=== PATIENT | female | born 1990 | race Caucasian/White ===

== ENCOUNTER 2020-01-22 18:19 | Emergency (ER) | payer BC, OTHER ==
[2020-01-22] MEDS ORDERED: Ondansetron 4 MG Tab.DIS PO ONE (19:19)
--- NOTE | 2020-01-22 19:26 | EDM.PDOC ---
ED HPI GENERAL MEDICAL PROBLEM - General Chief Complaint: Gastrointestinal Problem Stated Complaint: VOMITING Time Seen by Provider: 01/22/20 19:06 Source of Information: Reports: Patient, Family () History Limitations: Reports: No Limitations - History of Present Illness INITIAL COMMENTS - FREE TEXT/NARRATIVE: Mrs. Aranda is a very pleasant 29-year-old woman with no chronic medical issues, who states that she suffered a miscarriage on 01/12/2020. She underwent an upper sound this past 01/19/2020, which was, according to the patient, unremarkable, and did not identify an ectopic . Her OB /PLANT CLERK, however, has been following her quantitative hCGs, with the most recent quantitative hCG in the 800s last week (according to the patient - we have no record of it). The patient no longer has any vaginal bleeding. She has had low back pain since last week, nausea without emesis since yesterday, and she reports developing watery diarrhea 2 hours prior to coming to the ED. No recent fever. No urinary symptoms. No recent chills, cough, dyspnea, chest pain, palpitations, constipation, abdominal pain, recent weight gain or weight loss, recent bloody bowel movements or black bowel movements, recent joint aches , headaches, or rashes. Here in the ED, the patient is found to be hemodynamically stable, afebrile, saturating 98% on room air. The patient does not have a PCP. Her Noodle Maker is Dr. Anisha Velázquez. She received an influenza vaccine this season. Lower Back Pain Score (Numeric/FACES): 5 - Related Data Allergies Allergy/AdvReac Type Severity Reaction Status Date / Time latex Allergy Itching Verified 01/22/20 18:28 Home Meds: Home Meds . 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 (x 2) : 3 Para: 1 - Past Surgical History HEENT Surgical History: Reports: Myringotomy w Tube(s) (bilateral), Tonsillectomy GI Surgical History: Reports: Hernia, Inguinal (bilateral, as an infant) Female Surgical History: Reports: Other (See Below) (Exploratory laparoscopy -> negative for endometriosis) Musculoskeletal Surgical History: Reports: Other (See Below) (Left Lisfranc fracture repair) Social & Family History - Tobacco Use Smoking Status *Q: Never Smoker - Alcohol Use Alcohol Use History: Yes Alcohol Use Frequency: Socially - Recreational Drug Use Recreational Drug Use: No - Living Situation & Occupation Living situation: Reports: , with Spouse, with Family (1 child) Occupation: Employed ([employer]) ED ROS GENERAL - Review of Systems Review Of Systems: Comprehensive ROS is negative, except as noted in HPI. ED EXAM, GENERAL - Physical Exam Exam: See Below Exam Limited By: No Limitations General Appearance: Alert, WD/WN, No Apparent Distress Eye Exam: Bilateral Eye: EOMI, Normal Inspection Ears: Normal External Exam, Hearing Grossly Normal Nose: Normal Inspection Throat/Mouth: Normal Inspection, Normal Lips, Normal Voice, No Airway Compromise Head: Atraumatic, Normocephalic Neck: Normal Inspection, Full Range of Motion Respiratory/Chest: No Respiratory Distress, Lungs Clear, Normal Breath Sounds, No Accessory Muscle Use Cardiovascular: Normal Peripheral Pulses, Regular Rate, Rhythm, No Edema, No Gallop, No JVD, No Murmur, No Rub GI/Abdominal: Normal Bowel Sounds, Soft, No Organomegaly, No Distention, No Abnormal Bruit, No Mass, Tender (Mild, generalized, non-focal) (Female) Exam: Deferred Rectal (Female) Exam: Deferred Back Exam: Normal Inspection, Full Range of Motion. No: CVA Tenderness (L), CVA Tenderness (R) Extremities: Normal Inspection, Normal Range of Motion, No Pedal Edema, Normal Capillary Refill Neurological: Alert, Oriented, Normal Cognition, No Motor/Sensory Deficits Psychiatric: Normal Affect Skin Exam: Warm, Dry, Intact, Normal Color, No Rash Course - Vital Signs Last Recorded V/S: Last Vital Signs Temp 37.2 C 01/22/20 18: Pulse 78 01/22/20 18:26 Resp 16 01/22/20 18: BP 147/90 H 01/22/20 18:26 Pulse Ox 98 01/22/20 18:26 - Orders/Labs/Meds Labs: Laboratory Tests 01/22/20 01/22/20 Range/Units 19:35 20:15 HCG, Quant 469.0 mIU/mL Urine Color Light yellow (Yellow) Urine Appearance Clear (Clear) Urine pH 7.0 (5.0-8.0) Ur Specific Wilson 1.015 (1.005-1.030) Urine Protein Negative (Negative) Urine Glucose (UA) Negative (Negative) Urine Ketones Negative (Negative) Urine Occult Blood Trace-intact H (Negative) Urine Nitrite Negative (Negative) Urine Bilirubin Negative (Negative) Urine Urobilinogen 0.2 (0.2-1.0) Ur Leukocyte Esterase Trace H (Negative) Urine RBC Not seen (0-5) /hpf Urine WBC 0-5 (0-5) /hpf Ur Squamous Epith Cells 10-20 H (0-5) /hpf Urine Bacteria Rare (FEW) /hpf Urine Mucus Moderate H (FEW) /hpf Meds: Medications Discontinued Medications Generic Name Dose Route Start Last Admin Trade Name Freq PRN Reason Stop Dose Admin Loperamide HCl 4 mg 01/22/20 19:36 01/22/20 19:42 Imodium PO 01/22/20 19:37 4 mg ONETIME STA Administration Ondansetron HCl 4 mg 01/22/20 19:19 01/22/20 19:26 Zofran Odt PO 01/22/20 19:20 4 mg ONETIME ONE Administration - Re-Assessments/Exams Free Text/Narrative Re-Assessment/Exam: 01/22/20 19:19 As above, while the patient been experiencing some nausea and lower back pain since yesterday, and watery diarrhea for the past 2 hours, she is essentially here to have her hCG checked. Neither she nor her understand, however, why Dr. Velázquez is following her hCG. We will endeavor to reach Dr. Velázquez. Because of the patient's lower back pain, the triage nurse ordered a urinalysis. In the meantime, the patient will be given oral Zofran and loperamide. 01/22/20 19:[address] Way at 19:22. He suspects that Dr. Velázquez wants to make sure that there is no molar . I will order a quantitative hCG. 01/22/20 21:07 The patient's urinalysis indicates contamination, but is not consistent with a UTI. Her quantitative hCG is 469. 01/22/20 21:11 Test results discussed with the patient and her . I will discharge the patient home with an [facility] prescription for Zofran ODT 4 mg #10. She may take [id number] loperamide as needed. I will recommend an appropriate diet. Departure - Departure Time of Disposition: 21:17 Disposition: Home, Self-Care 01 Condition: Good Clinical Impression: Gastroenteritis - Discharge Information *PRESCRIPTION DRUG MONITORING PROGRAM REVIEWED*: Not Applicable *COPY OF PRESCRIPTION DRUG MONITORING REPORT IN PATIENT VANNA: Not Applicable Referrals: Anisha Velázquez MD [Primary Care Provider] - Forms: ED Department Discharge Additional Instructions: You were seen in the emergency room for low back pain, nausea, and watery diarrhea. Work-up in the ER included a urinalysis and a quantitative hCG. Your work-up was unremarkable. You do not have a UTI. Your quantitative hCG was 469. You have been started on the anti-nausea medicine Zofran, and a prescription for Zofran has been provided to you. Dissolve 1 tablet of Zofran on your tongue up to every 8 hours, as needed for nausea/vomiting. You have also been started on the anti-diarrhea medicine loperamide (Imodium AD) . Loperamide is available [id number], and the generic is just as good as the brand name. Take 1 tablet (2 mg) of loperamide after each loose bowel movement, to a maximum of 8 tablets (16 mg) within a 24-hour period. Bear in mind that you have already taken 2 tablets (4 mg). We recommend that you eat a bland diet, such as rice, oatmeal, or toast, until you are feeling better. Chicken noodle soup with saltine crackers is an excellent choice. Stay adequately hydrated. Gatorade or Powerade are best. We recommend that you avoid juice and milk, as they may make your diarrhea worse. Follow-up with your Noodle Maker, Dr. Anisha Velázquez, on Friday morning, 2019. If any other problems, please do not hesitate to return to the ER. Sepsis Event Note - Evaluation Sepsis Screening Result: No Definite Risk - Focused Exam Vital Signs: Vital Signs Temp Pulse Resp BP Pulse Ox 01/22/20 18:26 37.2 C 78 16 147/90 H 98 Date Exam was Performed: 01/22/20 Time Exam was Performed: 21:07
[2020-01-22] MEDS ORDERED: Loperamide 2 MG Cap PO STA (19:36)
== END 2020-01-22 21:25 | disposition home or self-care (01) ==
LOC: JD.ED 18:19
DX: K52.9 Noninfective gastroenteritis and colitis, unspecified (principal); Z91.040 Latex allergy status
CPT/HCPCS: 36415; 81001; 84702; 99284; A9270

== ENCOUNTER 2021-01-20 10:44 | Inpatient (IN) | payer BC ==
[2021-01-20] MEDS ORDERED: Magnesium Sulfate/Water 2 GM in Premix Bag 1 BAG IV ONE (11:31)
[2021-01-20] MEDS ORDERED: Sodium Chloride 0.9% 10 ML Syringe FLUSH PRN (11:31)
[2021-01-20] MEDS ORDERED: Nalbuphine 10 MG/1 ML Vial IVPUSH PRN (11:31)
[2021-01-20] MEDS ORDERED: Magnesium Sulfate/Water 4 GM in Premix Bag 1 BAG IV ONE (11:31)
[2021-01-20] MEDS ORDERED: Calcium Gluconate 10% 1 GM/10 ML SDV IV PRN (11:31)
[2021-01-20] MEDS ORDERED: Acetaminophen 325 MG Tab PO PRN (11:31)
[2021-01-20] MEDS ORDERED: Ondansetron 4 MG/2 ML SDV IVPUSH PRN ×2 (11:31→13:12)
[2021-01-20] MEDS ORDERED: Betamethasone Acetate/Betamethasone Sod Phosphate 30 MG/5 ML MDV IM ONE (11:37)
[2021-01-20] MEDS ORDERED: Oxytocin/Lactated Ringers 10 UNIT/1,000 ML BAG IV SCH ×2 (11:45)
--- NOTE | 2021-01-20 11:52 | PCM.LDHP ---
L&D History of Present Illness - General Date of Service: 01/20/21 Admit Problem/Dx: Patient Status Order with Admit Dx/Problem 01/20/21 11:03 Patient Status [ADT] Routine 01/20/21 11:31 Patient Status [ADT] Routine Admission Diagnosis/Problem Admission Diagnosis/Problem High risk Source of Information: Patient History Limitations: Reports: No Limitations - History of Present Illness Introduction:: Patient is a 30 y/o at 36 2/7 wks who presents for planned assessment. Has known gestational HTN, but on last clinic assessment had some upper limit of normal BP's. Today states she has been having more of a constant headache. Has tried Tylenol a few times, but no relief. Good FM. No other issues - Related Data Allergies/Adverse Reactions: Allergies Allergy/AdvReac Type Severity Reaction Status Date / Time latex Allergy Itching Verified 01/13/21 19:25 melon Allergy Anaphylactic Verified 01/13/21 19:25 Shock Home Medications: Home Meds Aspirin 81 mg PO DAILY 01/13/21 [History] L.acidoph,Paracasei, B.lactis [Probiotic] 1 each PO DAILY 01/13/21 [History] Vits #93/Iron Fum/FA [ Formula Tablet] 1 tab PO DAILY 01/13/21 [History] Sertraline [Zoloft] 50 mg PO DAILY 01/13/21 [History] Past Medical History Cardiovascular History: Reports: Other (See Below) (Gestational HTN in 2018) Respiratory History: Reports: Asthma (Exercise induced) 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 (x 2) : 4 Para: 1 LMP (Approximate): Psychiatric History: Reports: Anxiety - Past Surgical History HEENT Surgical History: Reports: Myringotomy w Tube(s) (bilateral), Tonsillectomy GI Surgical History: Reports: Hernia, Inguinal (bilateral, as an ) Female Surgical History: Reports: Other (See Below) (Diagnostic laparoscopy - > negative for endometriosis) Musculoskeletal Surgical History: Reports: Other (See Below) (Left Lisfranc fracture repair) Social & Family History - Tobacco Use Tobacco Use Status *Q: Never Tobacco User - Alcohol Use Alcohol Use History: No - Recreational Drug Use Recreational Drug Use: No - Living Situation & Occupation Living situation: Reports: , with Spouse, with Family (1 child) Occupation: Employed ([employer]) H&P Review of Systems - Review of Systems: Review Of Systems: See Below General: Reports: Malaise Pulmonary: Reports: No Symptoms Cardiovascular: Reports: No Symptoms Gastrointestinal: Reports: No Symptoms Genitourinary: Reports: No Symptoms Musculoskeletal: Reports: No Symptoms Psychiatric: Reports: No Symptoms Neurological: Reports: Headache L&D Exam - Exam Exam: See Below - Vital Signs Vital Signs: Last Vital Signs Temp Pulse 90 01/20/21 11:00 Resp BP 141/95 H 01/20/21 11:00 Pulse Ox Weight: 92.986 kg - OB Specific Contraction Intensity: Irritability Movement: Active Heart Tones: Present Heart Tones per Min: 135 Heart Rate (FHR) Variability: Moderate (6-25 bmp) Presentation: Vertex - Morris Score Morris Score Cervix Position: Midposition Morris Score Consistency: Soft Morris Score Effacement: 51-70% Morris Score Dilation: 1-2 cm Morris Score 's Station: -3 Morris Score Total: 6 - Exam General: Alert, Oriented, Cooperative Lungs: Clear to Auscultation, Normal Respiratory Effort Cardiovascular: Regular Rate, Regular Rhythm GI/Abdominal Exam: Soft, Non-Tender Genitourinary: Normal external exam Extremities: Normal Inspection Skin: Warm, Dry, Intact Neurological: Hyperreflexia. No: Clonus DTR: 2+: Patella (R), 3+: Bicep (L), Bicep (R), Patella (L) - Problem List (1) 36 weeks gestation of SNOMED Code(s): 57579512 ICD Code: Z3A.36 - 36 WEEKS GESTATION OF Status: Acute Current Visit: Yes (2) Severe preeclampsia SNOMED Code(s): 68160896 ICD Code: O14.10 - SEVERE PRE-ECLAMPSIA, UNSPECIFIED TRIMESTER Status: Acute Current Visit: Yes Qualifiers: Trimester: third trimester Qualified Code(s): O14.13 - Severe pre- eclampsia, third trimester Problem List Initiated/Reviewed/Updated: Yes Orders Last 24hrs: Active Orders 24 hr Category Date Time Status Patient Status [ADT] Routine ADT 01/20/21 11:03 Active Patient Status [ADT] Routine ADT 01/20/21 11:31 Ordered Bedrest [RC] ASDIRECTED Care 01/20/21 11:31 Ordered Communication Order [RC] ASDIRECTED Care 01/20/21 11:31 Ordered Communication Order [RC] ASDIRECTED Care 01/20/21 11:31 Ordered Communication Order [RC] ASDIRECTED Care 01/20/21 11:31 Ordered Communication Order [RC] ASDIRECTED Care 01/20/21 11:31 Ordered Equipment to Bedside [RC] PRN Care 01/20/21 11:31 Ordered Monitoring [RC] CONTINUOUS Care 01/20/21 11:31 Ordered Non Stress Test [RC] PER UNIT ROUTINE Care 01/20/21 11:03 Active Intake and Output [RC] Q4H Care 01/20/21 11:32 Ordered Notify Provider Status Change [RC] ASDIRECTED Care 01/20/21 11:31 Ordered Notify Provider Vital Signs [RC] ASDIRECTED Care 01/20/21 11:31 Ordered Notify Provider [RC] ASDIRECTED Care 01/20/21 11:31 Ordered Notify Provider [RC] ASDIRECTED Care 01/20/21 11:31 Ordered Notify Provider [RC] PRN Care 01/20/21 11:31 Ordered Oxygen Therapy [RC] PRN Care 01/20/21 11:31 Ordered Peripheral IV Care [RC] . DIRECTED Care 01/20/21 11:36 Ordered Vital Signs [RC] ASDIRECTED Care 01/20/21 11:31 Ordered Vital Signs [RC] PER UNIT ROUTINE Care 01/20/21 11:03 Active Clear Liquid Diet [DIET] Diet 01/20/21 Lunch Ordered ALANINE AMINOTRANSFERASE,ALT [CHEM] Routine Lab 01/20/21 11:19 Ordered ASPARTATE AMNIOTRANSFERASE,AST [CHEM] Routine Lab 01/20/21 11:19 Ordered CBC W/O DIFF,HEMOGRAM [HEME] Routine Lab 01/20/21 11:20 Ordered CORONAVIRUS COVID-19 STEPHANIE [MOLEC] Stat Lab 01/20/21 11:36 Ordered CREATININE W/GFR [CHEM] Routine Lab 01/20/21 11:19 Ordered PROTEIN/CREATININE RATIO,URINE [URCHEM] Routine Lab 01/20/21 11:19 Ordered RPR (SYPHILIS SERO) W/ RFLX [REF] Routine Lab 01/20/21 11:20 Ordered TYPE AND SCREEN [BBK] Routine Lab 01/20/21 11:20 Ordered Acetaminophen [TylenoL] Med 01/20/21 11:31 Ordered 650 mg PO Q4H PRN Calcium Gluconate Med 01/20/21 11:31 Ordered 1 gm IV ASDIRECTED PRN Lactated Ringers [Ringers, Lactated] 1,000 ml Med 01/20/21 11:45 Ordered IV ASDIRECTED Nalbuphine [Nubain] Med 01/20/21 11:31 Ordered 10 mg IVPUSH Q2H PRN Ondansetron [Zofran] Med 01/20/21 11:31 Ordered 4 mg IVPUSH Q4H PRN Oxytocin/Lactated Ringers [Pitocin in LR 10 Units/1,000 Med 01/20/21 11:45 Ordered ML] 10 unit in 1,000 ml IV .CONTINUOUS Oxytocin/Lactated Ringers [Pitocin in LR 10 Units/1,000 Med 01/20/21 11:45 Ordered ML] 10 unit in 1,000 ml IV TITRATE Sodium Chloride 0.9% [Saline Flush] Med 01/20/21 11:31 Ordered 10 ml FLUSH ASDIRECTED PRN Blood Pressure [OM.PC] ASDIRECTED Ot 01/20/21 11:45 Ordered Deep Tendon Reflexes [WOMSER] ASDIRECTED [facility] 01/20/21 11:45 Ordered Electronic Heart Tones Internal [WOMSER] Per Unit [facility] 01/20/21 11:31 Ordered Routine Medication Administration Instruction [OM.PC] Per Unit [facility] 01/20/21 11:33 Ordered Routine Peripheral IV Insertion Adult [OM.PC] Urgent Ot 01/20/21 11:31 Ordered Resuscitation Status Routine Resus Stat 01/20/21 11:03 Ordered Medication Orders Acetaminophen (Acetaminophen 325 Mg Tab) 650 mg PO Q4H PRN PRN Reason: Pain (Mild 1-3) and fever Calcium Gluconate (Calcium Gluconate 10% 1 Gm/10 Ml Sdv) 1 gm IV ASDIRECTED PRN PRN Reason: respiratory distress Lactated Ringer's (Ringers, Lactated) 1,000 mls @ 75 mls/hr IV ASDIRECTED DAE Oxytocin/Lactated Ringer's (Pitocin In Lr 10 Units/1,000 Ml) 10 unit in 1,000 mls @ 12 mls/hr IV TITRATE DAE; Protocol Oxytocin/Lactated Ringer's (Pitocin In Lr 10 Units/1,000 Ml) 10 unit in 1,000 mls @ 500 mls/hr IV .CONTINUOUS DAE Nalbuphine HCl (Nalbuphine 10 Mg/1 Ml Vial) 10 mg IVPUSH Q2H PRN PRN Reason: Pain Ondansetron HCl (Ondansetron 4 Mg/2 Ml Sdv) 4 mg IVPUSH Q4H PRN PRN Reason: Nausea/Vomiting Sodium Chloride (Sodium Chloride 0.9% 10 Ml Syringe) 10 ml FLUSH ASDIRECTED PRN PRN Reason: Keep Vein Open Assessment/Plan Comment:: Initial BP 155/110. Remainder so far upper limit of mild range. With patient complaints of headache that has not been able to be treated with several doses of Tylenol would classify here as severe preeclampsia. Plan for IOL. She expressed understanding * Labs to be done * Betamethasone to be administered * Magnesium, 6 gram bolus then 2 grams/hr * Monitor BP's closely. Does not yet need antihypertensive treatment * Close I&O's * GBS negative, no need for antibiotics * Pitocin for IOL, AROM when able * Pain management options reviewed * Anticipate
[2021-01-20] MEDS ORDERED: Magnesium Sulfate/Water 40 GM/1,000 ML BAG ONE (11:58)
[2021-01-20] MEDS: Lactated Ringers 1,000 ML IV SCH ×3 (12:08→19:30)
[2021-01-20] MEDS: Magnesium Sulfate/Water 40 GM/1,000 ML BAG IV SCH (12:41)
[2021-01-20] MEDS ORDERED: fentaNYL 100 MCG/2 ML SDV EPIDUR PRN (13:12)
--- NOTE | 2021-01-20 13:15 | PCM.PREANE ---
Preanesthetic Assessment - Procedure Proposed Procedure: Epidural - Anesthesia/Transfusion/Family Hx Anesthesia History: Prior Anesthesia Without Reaction Family History of Anesthesia Reaction: No Transfusion History: No Prior Transfusion(s) Intubation History: Unknown - Review of Systems General: No Symptoms Pulmonary: No Symptoms Cardiovascular: No Symptoms (Preeclampsia/Gestational HTN), Chest Pain Gastrointestinal: No Symptoms (GERD) Neurological: Numbness (CTS with bilaterally) Other: Reports: Anxiety - Physical Assessment NPO Status Date: 01/20/21 NPO Status Time: 13:50 Vital Signs: Last Vital Signs Temp 36.8 C 01/20/21 12:00 Pulse 97 01/20/21 12:00 Resp 20 01/20/21 12:00 BP 151/95 H 01/20/21 12:00 Pulse Ox 97 01/20/21 12:00 Height: 1.68 m Weight: 92.986 kg ASA Class: 3 Mental Status: Alert & Oriented x3 Airway Class: Mallampati = 2 Dentition: Reports: Normal Dentition, Caries Thyro-Mental Finger Breadths: 3 Mouth Opening Finger Breadths: 3 ROM/Head Extension: Full Lungs: Clear to Auscultation, Normal Respiratory Effort Cardiovascular: Regular Rate, Regular Rhythm, No Murmurs - Lab Values: Laboratory Last Values WBC 11.71 K/mm3 (3.98-10.04) H 01/20/21 11:38 RBC 4.41 M/mm3 (3.98-5.22) 01/20/21 11:38 Hgb 12.9 gm/dl (11.2-15.7) D 01/20/21 11:38 Hct 38.7 % (34.1-44.9) 01/20/21 11:38 MCV 87.8 fl (79.4-94.8) 01/20/21 11:38 MCH 29.3 pg (25.6-32.2) 01/20/21 11:38 MCHC 33.3 g/dl (32.2-35.5) 01/20/21 11:38 RDW Std Deviation 39.3 fL (36.4-46.3) 01/20/21 11:38 Plt Count 222 K/mm3 (182-369) 01/20/21 11:38 MPV 11.5 fl (9.4-12.3) 01/20/21 11:38 Creatinine 0.7 mg/dL (0.55-1.02) 01/20/21 11:38 Est Cr Clr Drug Dosing 108.01 mL/min 01/20/21 11:38 Estimated GFR (MDRD) > 60 mL/min (>60) 01/20/21 11:38 AST 15 U/L (15-37) 01/20/21 11:38 ALT 21 U/L (14-59) 01/20/21 11:38 Ur Random Creatinine 21.1 mg/dL (30.0-125.0) L 01/20/21 11:40 U Random Total Protein 6.3 mg/dL (0.0-11.8) 01/20/21 11:40 Protein/Creatinin Ratio 298.6 mg/g (0-149) H 01/20/21 11:40 SARS-CoV-2 RNA (STEPHANIE) Negative (NEGATIVE) 01/20/21 11:44 Blood Type AB POSITIVE 01/20/21 11:38 Gel Antibody Screen Negative 01/20/21 11:38 Above labs reviewed and noted and within acceptable ranges to proceed with epidural if desired. - Allergies Allergies/Adverse Reactions: Allergies Allergy/AdvReac Type Severity Reaction Status Date / Time latex Allergy Itching Verified 01/13/21 19:25 melon Allergy Anaphylactic Verified 01/13/21 19:25 Shock - Anesthesia Plan Pre-Op Medication Ordered: None - Acknowledgements Anesthesia Type Planned: Spinal, Epidural Pt an Appropriate Candidate for the Planned Anesthesia: Yes Alternatives and Risks of Anesthesia Discussed w Pt/Guardian: Yes Pt/Guardian Understands and Agrees with Anesthesia Plan: Yes PreAnesthesia Questionnaire Cardiovascular History: Reports: Other (See Below) (Gestational HTN in 2018) Respiratory History: Reports: Asthma (Exercise induced) 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) Psychiatric History: Reports: Anxiety - Past Surgical History HEENT Surgical History: Reports: Myringotomy w Tube(s) (bilateral), Tonsillectomy GI Surgical History: Reports: Hernia, Inguinal (bilateral, as an ) Female Surgical History: Reports: Other (See Below) (Diagnostic laparoscopy - > negative for endometriosis) Musculoskeletal Surgical History: Reports: Other (See Below) (Left Lisfranc fracture repair) - SUBSTANCE USE Tobacco Use Status *Q: Never Tobacco User Recreational Drug Use History: No - HOME MEDS Home Medications: Home Meds Aspirin 81 mg PO DAILY 01/13/21 [History] L.acidoph,Paracasei, B.lactis [Probiotic] 1 each PO DAILY 01/13/21 [History] Vits #93/Iron Fum/FA [ Formula Tablet] 1 tab PO DAILY 01/13/21 [History] Sertraline [Zoloft] 50 mg PO DAILY 01/13/21 [History] Acetaminophen [Tylenol Extra Strength] 1,000 mg PO ASDIRECTED PRN 01/20/21 [History] - CURRENT (IN HOUSE) MEDS Current Meds: Current Medications Acetaminophen (Acetaminophen 325 Mg Tab) 650 mg PO Q4H PRN PRN Reason: Pain (Mild 1-3) and fever Calcium Gluconate (Calcium Gluconate 10% 1 Gm/10 Ml Sdv) 1 gm IV ASDIRECTED PRN PRN Reason: respiratory distress Ephedrine Sulfate (Ephedrine 50 Mg/Ml Sdv) 5 mg IVPUSH ASDIRECTED PRN PRN Reason: Hypotension Fentanyl (Fentanyl 100 Mcg/2 Ml Sdv) 100 mcg EPIDUR Q3H PRN PRN Reason: Pain Fentanyl/Bupivacaine HCl (Bupivacaine/Fentanyl/Ns 100 Ml Bag) 100 ml EPIDUR ASDIRECTED DAE Lactated Ringer's (Ringers, Lactated) 1,000 mls @ 75 mls/hr IV ASDIRECTED DAE Last Admin: 01/20/21 12:08 Dose: 75 mls/hr Documented by: Oxytocin/Lactated Ringer's (Pitocin In Lr 10 Units/1,000 Ml) 10 unit in 1,000 mls @ 12 mls/hr IV TITRATE DAE; Protocol Oxytocin/Lactated Ringer's (Pitocin In Lr 10 Units/1,000 Ml) 10 unit in 1,000 mls @ 500 mls/hr IV .CONTINUOUS DAE Magnesium Sulfate (Magnesium Sulfate In Water 40 Gm/1000 Ml) 40 gm in 1,000 mls @ 50 mls/hr IV ASDIRECTED DAE Last Admin: 01/20/21 12:41 Dose: 50 mls/hr Documented by: Miscellaneous Medication (Phenylephrine Hcl In 0.9% Nacl 1 Mg/10 Ml Syringe) 0 mg IVPUSH ONETIME ONE Stop: 01/20/21 13:13 Nalbuphine HCl (Nalbuphine 10 Mg/1 Ml Vial) 10 mg IVPUSH Q2H PRN PRN Reason: Pain Ondansetron HCl (Ondansetron 4 Mg/2 Ml Sdv) 4 mg IVPUSH Q4H PRN PRN Reason: Nausea/Vomiting Ondansetron HCl (Ondansetron 4 Mg/2 Ml Sdv) 4 mg IVPUSH ONETIME PRN PRN Reason: Nausea/Vomiting Sodium Chloride (Sodium Chloride 0.9% 10 Ml Syringe) 10 ml FLUSH ASDIRECTED PRN PRN Reason: Keep Vein Open Discontinued Medications Betamethasone Acet/Betameth SodPhos (Betamethasone Acetate/Betamethasone Sod Phosphate 30 Mg/5 Ml Mdv) 12 mg IM ONETIME ONE Stop: 01/20/21 11:38 Last Admin: 01/20/21 12:09 Dose: 12 mg Documented by: Magnesium Sulfate 4 gm/ Premix 50 mls @ 200 mls/hr IV ONETIME ONE Stop: 01/20/21 11:45 Last Admin: 01/20/21 12:09 Dose: 200 mls/hr Documented by: Magnesium Sulfate 2 gm/ Premix 50 mls @ 300 mls/hr IV ONETIME ONE Stop: 01/20/21 11:40 Last Admin: 01/20/21 12:25 Dose: 300 mls/hr Documented by: Magnesium Sulfate (Magnesium Sulfate In Water 40 Gm/1000 Ml) Confirm Administered Dose 40 gm in 1,000 mls @ as directed .ROUTE .STK-MED ONE Stop: 01/20/21 11:59 Last Admin: 01/20/21 12:42 Dose: Not Given Documented by:
--- NOTE | 2021-01-20 16:43 | PCM.PNLD ---
Labor Progress Note - VS & Meds Vital Signs: Last Vital Signs Temp 36.8 C 01/20/21 12:00 Pulse 98 01/20/21 16:04 Resp 20 01/20/21 12:00 BP 142/90 H 01/20/21 16:04 Pulse Ox 97 01/20/21 12:00 Active Medications: Current Medications Acetaminophen (Acetaminophen 325 Mg Tab) 650 mg PO Q4H PRN PRN Reason: Pain (Mild 1-3) and fever Calcium Gluconate (Calcium Gluconate 10% 1 Gm/10 Ml Sdv) 1 gm IV ASDIRECTED PRN PRN Reason: respiratory distress Ephedrine Sulfate (Ephedrine 50 Mg/Ml Sdv) 5 mg IVPUSH ASDIRECTED PRN PRN Reason: Hypotension Fentanyl (Fentanyl 100 Mcg/2 Ml Sdv) 100 mcg EPIDUR Q3H PRN PRN Reason: Pain Fentanyl/Bupivacaine HCl (Bupivacaine/Fentanyl/Ns 100 Ml Bag) 100 ml EPIDUR ASDIRECTED DAE Lactated Ringer's (Ringers, Lactated) 1,000 mls @ 75 mls/hr IV ASDIRECTED DAE Last Infusion: 01/20/21 16:14 Dose: 50 mls/hr Documented by: Oxytocin/Lactated Ringer's (Pitocin In Lr 10 Units/1,000 Ml) 10 unit in 1,000 mls @ 12 mls/hr IV TITRATE DAE; Protocol Last Titration: 01/20/21 15:57 Dose: 8 munits/min, 48 mls/hr Documented by: Oxytocin/Lactated Ringer's (Pitocin In Lr 10 Units/1,000 Ml) 10 unit in 1,000 mls @ 500 mls/hr IV .CONTINUOUS DAE Magnesium Sulfate (Magnesium Sulfate In Water 40 Gm/1000 Ml) 40 gm in 1,000 mls @ 50 mls/hr IV ASDIRECTED DAE Last Admin: 01/20/21 12:41 Dose: 50 mls/hr Documented by: Nalbuphine HCl (Nalbuphine 10 Mg/1 Ml Vial) 10 mg IVPUSH Q2H PRN PRN Reason: Pain Ondansetron HCl (Ondansetron 4 Mg/2 Ml Sdv) 4 mg IVPUSH Q4H PRN PRN Reason: Nausea/Vomiting Ondansetron HCl (Ondansetron 4 Mg/2 Ml Sdv) 4 mg IVPUSH ONETIME PRN PRN Reason: Nausea/Vomiting Sodium Chloride (Sodium Chloride 0.9% 10 Ml Syringe) 10 ml FLUSH ASDIRECTED PRN PRN Reason: Keep Vein Open Discontinued Medications Betamethasone Acet/Betameth SodPhos (Betamethasone Acetate/Betamethasone Sod Phosphate 30 Mg/5 Ml Mdv) 12 mg IM ONETIME ONE Stop: 01/20/21 11:38 Last Admin: 01/20/21 12:09 Dose: 12 mg Documented by: Magnesium Sulfate 4 gm/ Premix 50 mls @ 200 mls/hr IV ONETIME ONE Stop: 01/20/21 11:45 Last Admin: 01/20/21 12:09 Dose: 200 mls/hr Documented by: Magnesium Sulfate 2 gm/ Premix 50 mls @ 300 mls/hr IV ONETIME ONE Stop: 01/20/21 11:40 Last Admin: 01/20/21 12:25 Dose: 300 mls/hr Documented by: Magnesium Sulfate (Magnesium Sulfate In Water 40 Gm/1000 Ml) Confirm Administered Dose 40 gm in 1,000 mls @ as directed .ROUTE .STK-MED ONE Stop: 01/20/21 11:59 Last Admin: 01/20/21 12:42 Dose: Not Given Documented by: Miscellaneous Medication (Phenylephrine Hcl In 0.9% Nacl 1 Mg/10 Ml Syringe) 0 mg IVPUSH ONETIME ONE Stop: 01/20/21 13:13 - Uterine Contractions Uterine Monitoring Mode: External [place] Contraction Intensity: Mild Uterine Resting Tone: Soft - Monitoring Monitor Mode: External Ultrasound Heart Rate (FHR) Baseline: 145 Heart Rate (FHR) Variability: Moderate (6-25 bmp) Accelerations: Present, 15x15 Decelerations: None - Vaginal Exam Dilation (cm): 2 Effacement (Percent): 60 Station: -3 Cervical Position: Midposition - Labor Progress (Free Text) Labor Progress: Doign well. On 8 of pitocin. AROM just done with release of large amount of clear fluid. Tolerating magnesium without too many concerns. Initially felt warm and flushed, but ok currently. Still with headache. Will treat with Tylenol. BP's have been more mid-mild range since magnesium started. Has not required any anti-hypertensive therapy
[2021-01-20] MEDS: Bupivacaine/fentaNYL/NS 100 ML Bag EPIDUR SCH (19:08)
[2021-01-20] MEDS: ePHEDrine 50 MG/ML SDV IVPUSH PRN ×3 (19:39→19:45)
[2021-01-21] MEDS ORDERED: Bupivacaine 0.25% 10 ML SDV ONE
[2021-01-21] MEDS ORDERED: ePHEDrine 50 MG/ML SDV ONE
[2021-01-21] MEDS ORDERED: Phenylephrine/Normal Saline 100 MCG/ML 10 ML Syringe ONE
[2021-01-21] MEDS: Bupivacaine/fentaNYL/NS 100 ML Bag EPIDUR SCH (03:11)
--- NOTE | 2021-01-21 05:35 | PCM.DEL ---
L & D Note - General Info Date of Service: 01/21/21 - Delivery Note Labor: Induced by ARM, Induced by Oxytocin Delivery Outcome: Livebirth Infant Delivery Method: Spontaneous Vaginal Delivery-Single Infant Delivery Mode: Spontaneous Presentation: Right Occiput Anterior (ESME) Nuchal Cord: None Anesthesia Type: Epidural Amniotic Fluid Description: Clear Episiotomy Type: None Laceration: 2nd Degree Suture type: Vicryl Suture size: 2-0 Placenta: Intact, Spontaneous Cord: 3 Vessels Estimated Blood Loss: 100 Resuscitation Needed: Yes [place]: Bulb Syringe, Stimulated, Warmed, [place] Used, Warmer Used Delivery Comments (Free Text/Narrative):: Patient found to be complete and began pushing. With maternal pushing effort head delivered from an ESME presentation. No nuchal cord present. With gentle downward traction the shoulders and body delivered. placed on maternal abdomen. Cord clamped and cut. Cord blood obtained. Placenta allowed time to separate and expelled intact. Inspection of perineum showed a 2nd degree laceration repaired with a 2-0 Vicryl in the typical fashion - General Info Date of Service: 01/21/21 - Patient Data Vitals - Most Recent: Last Vital Signs Temp 36.8 C 01/20/21 12:00 Pulse 98 01/20/21 16:04 Resp 20 01/20/21 12:00 BP 142/90 H 01/20/21 16:04 Pulse Ox 97 01/20/21 12:00 Weight - Most Recent: 92.986 kg I&O - Last 24 Hours: Intake & Output 01/20/21 01/20/21 01/21/21 14:59 22:59 07:59 Intake Total 100 1286 Output Total 775 1100 Balance -675 186 - Problem List & Annotations (1) 36 weeks gestation of SNOMED Code(s): 67082964 Code(s): Z3A.36 - 36 WEEKS GESTATION OF Status: Acute Current Visit: Yes (2) Severe preeclampsia SNOMED Code(s): 93721005 Code(s): O14.10 - SEVERE PRE-ECLAMPSIA, UNSPECIFIED TRIMESTER Status: Acute Current Visit: Yes Qualifiers: Trimester: third trimester Qualified Code(s): O14.13 - Severe pre- eclampsia, third trimester (3) Vaginal delivery SNOMED Code(s): 568944817 Code(s): O80 - ENCOUNTER FOR FULL-TERM UNCOMPLICATED DELIVERY Status: Acute Current Visit: Yes - Problem List Review Problem List Initiated/Reviewed/Updated: Yes - My Orders Last 24 Hours: My Active Orders 01/20/21 Lunch Regular Diet [DIET] 01/20/21 11:03 Non Stress Test [RC] PER UNIT ROUTINE Resuscitation Status Routine 01/20/21 11:31 Patient Status [ADT] Routine Bedrest [RC] ASDIRECTED Communication Order [RC] ASDIRECTED Communication Order [RC] ASDIRECTED Communication Order [RC] ASDIRECTED Communication Order [RC] ASDIRECTED Equipment to Bedside [RC] PRN Monitoring [RC] CONTINUOUS Notify Provider Status Change [RC] ASDIRECTED Notify Provider Vital Signs [RC] ASDIRECTED Notify Provider [RC] ASDIRECTED Notify Provider [RC] ASDIRECTED Notify Provider [RC] PRN Oxygen Therapy [RC] PRN Vital Signs [RC] ASDIRECTED Acetaminophen [TylenoL] 650 mg PO Q4H PRN Calcium Gluconate 1 gm IV ASDIRECTED PRN Nalbuphine [Nubain] 10 mg IVPUSH Q2H PRN Ondansetron [Zofran] 4 mg IVPUSH Q4H PRN Sodium Chloride 0.9% [Saline Flush] 10 ml FLUSH ASDIRECTED PRN Electronic Heart Tones Internal [WOMSER] Per Unit Routine Peripheral IV Insertion Adult [OM.PC] Urgent 01/20/21 11:32 Intake and Output [RC] Q4H 01/20/21 11:33 Medication Administration Instruction [OM.PC] Per Unit Routine 01/20/21 11:36 Peripheral IV Care [RC] Q2HR 01/20/21 11:38 RPR (SYPHILIS SERO) W/ RFLX [REF] Routine 01/20/21 11:45 Lactated Ringers [Ringers, Lactated] 1,000 ml IV ASDIRECTED Oxytocin/Lactated Ringers [Pitocin in LR 10 Units/1,000 ML] 10 unit in 1,000 ml IV .CONTINUOUS Oxytocin/Lactated Ringers [Pitocin in LR 10 Units/1,000 ML] 10 unit in 1,000 ml IV TITRATE Blood Pressure [OM.PC] ASDIRECTED Deep Tendon Reflexes [WOMSER] ASDIRECTED 01/20/21 12:00 Magnesium Sulfate/Water [Magnesium Sulfate in Water 40 GM/1000 ML] 40 gm in 1,000 ml IV ASDIRECTED 01/21/21 05:33 Patient Status Manage Transfer [TRANSFER] Routine - Assessment Assessment:: PPD#0 - Plan Plan:: * Routine cares * Breast feeding * Magnesium, 2 grams/hr for next 24 hours * Monitor BP's closely. * Close I&O's
[2021-01-21] MEDS ORDERED: Oxytocin 10 Units/1 ML SDV ONE (06:10)
[2021-01-21] MEDS ORDERED: Lactated Ringers 0 ML ONE (06:10)
[2021-01-21] MEDS ORDERED: Ketorolac 30 MG/ML SDV ONE (06:10)
[2021-01-21] MEDS ORDERED: ceFAZolin 1 GM Vial ONE (06:10)
[2021-01-21] MEDS ORDERED: Ondansetron 4 MG/2 ML SDV ONE (06:10)
[2021-01-21] MEDS ORDERED: Morphine PF 10 MG/10 ML SDV ONE (06:11)
[2021-01-21] MEDS ORDERED: fentaNYL 100 MCG/2 ML SDV ONE (06:12)
[2021-01-21] MEDS ORDERED: Benzocaine/Menthol 20%-0.5% Spray 56 GM Canister TOP PRN (07:36)
--- NOTE | 2021-01-21 08:17 | PCM48HPAN ---
Post Anesthesia Note - EVALUATION WITHIN 48HRS OF ANESTHETIC Vital Signs in Normal Range: Yes Patient Participated in Evaluation: Yes Respiratory Function Stable: Yes Airway Patent: Yes Cardiovascular Function Stable: Yes Hydration Status Stable: Yes Pain Control Satisfactory: Yes Nausea and Vomiting Control Satisfactory: Yes Mental Status Recovered: Yes Vital Signs: Last Vital Signs Temp 36.8 C 01/20/21 12:00 Pulse 98 01/20/21 16:04 Resp 20 01/20/21 12:00 BP 142/90 H 01/20/21 16:04 Pulse Ox 97 01/20/21 12:00
[2021-01-21] MEDS: Witch Hazel Medicated Pads 40/Jar TOP PRN (09:13)
[2021-01-21] MEDS: Ibuprofen 600 MG Tab PO PRN ×2 (09:28→16:01)
[2021-01-21] MEDS: Docusate Sodium 100 MG Cap PO PRN (09:28)
[2021-01-21] MEDS: Magnesium Sulfate/Water 40 GM/1,000 ML BAG IV SCH (11:39)
[2021-01-21] MEDS: Acetaminophen 325 MG Tab PO PRN ×2 (14:49→19:53)
[2021-01-21] MEDS: Lactated Ringers 1,000 ML IV SCH (16:49)
[2021-01-21] MEDS: Sertraline 50 MG Tab PO SCH (19:05)
[2021-01-22] MEDS: Ibuprofen 600 MG Tab PO PRN ×2 (02:06→17:50)
--- NOTE | 2021-01-22 07:15 | PCM.PNPP ---
- General Info Date of Service: 01/22/21 Functional Status: Reports: Pain Controlled, Tolerating Diet, Ambulating, Urinating - Review of Systems General: Reports: Fatigue Pulmonary: Reports: No Symptoms Cardiovascular: Reports: No Symptoms Gastrointestinal: Reports: No Symptoms Genitourinary: Reports: No Symptoms Musculoskeletal: Reports: No Symptoms - Patient Data Vital Signs - Most Recent: Last Vital Signs Temp 36.6 C 01/22/21 05:56 Pulse 74 01/22/21 05:56 Resp 16 01/22/21 05:56 BP 121/84 01/22/21 05:56 Pulse Ox 97 01/22/21 05:56 Weight - Most Recent: 92.986 kg I&O - Last 24 Hours: Intake & Output 01/21/21 01/22/21 01/22/21 22:59 06:59 14:59 Intake Total 2200 3600 Output Total 1600 2800 Balance 600 800 Med Orders - Current: Current Medications Acetaminophen (Acetaminophen 325 Mg Tab) 650 mg PO Q4H PRN PRN Reason: mild pain or fever Last Admin: 01/21/21 19:53 Dose: 650 mg Documented by: Benzocaine/Menthol (Benzocaine/Menthol 20%-0.5% [place] 56 Gm Canister) 0 gm TOP ASDIRECTED PRN PRN Reason: Perineal Comfort Measure Last Admin: 01/21/21 09:13 Dose: 1 applic Documented by: Calcium Gluconate (Calcium Gluconate 10% 1 Gm/10 Ml Sdv) 1 gm IV ASDIRECTED PRN PRN Reason: respiratory distress Docusate Sodium (Docusate Sodium 100 Mg Cap) 100 mg PO BID PRN PRN Reason: Constipation Last Admin: 01/21/21 09:28 Dose: 100 mg Documented by: Lactated Ringer's (Ringers, Lactated) 1,000 mls @ 75 mls/hr IV ASDIRECTED DAE Last Admin: 01/21/21 16:49 Dose: 75 mls/hr Documented by: Magnesium Sulfate (Magnesium Sulfate In Water 40 Gm/1000 Ml) 40 gm in 1,000 mls @ 50 mls/hr IV ASDIRECTED DAE Last Admin: 01/21/21 11:39 Dose: 50 mls/hr Documented by: Ibuprofen (Ibuprofen 600 Mg Tab) 600 mg PO Q6H PRN PRN Reason: Mild pain or fever Last Admin: 01/22/21 02:06 Dose: 600 mg Documented by: Sertraline HCl (Sertraline 50 Mg Tab) 50 mg PO DAILY [facility] Last Admin: 01/21/21 19:05 Dose: Not Given Documented by: Michele Matta (Michele Matta Medicated Pads 40/Jar) 1 pad TOP ASDIRECTED PRN PRN Reason: Perineal Comfort Measure Last Admin: 01/21/21 09:13 Dose: 1 applic Documented by: Discontinued Medications Acetaminophen (Acetaminophen 325 Mg Tab) 650 mg PO Q4H PRN PRN Reason: Pain (Mild 1-3) and fever Last Admin: 01/20/21 17:10 Dose: 650 mg Documented by: Betamethasone Acet/Betameth SodPhos (Betamethasone Acetate/Betamethasone Sod Phosphate 30 Mg/5 Ml Mdv) 12 mg IM ONETIME ONE Stop: 01/20/21 11:38 Last Admin: 01/20/21 12:09 Dose: 12 mg Documented by: Cefazolin Sodium (Cefazolin 1 Gm Vial) Confirm Administered Dose 2 gm .ROUTE .STK-MED ONE Stop: 01/21/21 06:11 Ephedrine Sulfate (Ephedrine 50 Mg/Ml Sdv) 5 mg IVPUSH ASDIRECTED PRN PRN Reason: Hypotension Last Admin: 01/20/21 19:45 Dose: 5 mg Documented by: Fentanyl (Fentanyl 100 Mcg/2 Ml Sdv) 100 mcg EPIDUR Q3H PRN PRN Reason: Pain Last Admin: 01/20/21 19:08 Dose: 100 mcg Documented by: Fentanyl (Fentanyl 100 Mcg/2 Ml Sdv) Confirm Administered Dose 100 mcg .ROUTE .STK-MED ONE Stop: 01/21/21 06:13 Fentanyl/Bupivacaine HCl (Bupivacaine/Fentanyl/Ns 100 Ml Bag) 100 ml EPIDUR ASDIRECTED DAE Last Admin: 01/21/21 03:11 Dose: 100 ml Documented by: Magnesium Sulfate 4 gm/ Premix 50 mls @ 200 mls/hr IV ONETIME ONE Stop: 01/20/21 11:45 Last Admin: 01/20/21 12:09 Dose: 200 mls/hr Documented by: Magnesium Sulfate 2 gm/ Premix 50 mls @ 300 mls/hr IV ONETIME ONE Stop: 01/20/21 11:40 Last Admin: 01/20/21 12:25 Dose: 300 mls/hr Documented by: Oxytocin/Lactated Ringer's (Pitocin In Lr 10 Units/1,000 Ml) 10 unit in 1,000 mls @ 12 mls/hr IV TITRATE DAE; Protocol Last Titration: 01/21/21 01:00 Dose: 14 munits/min, 84 mls/hr Documented by: Oxytocin/Lactated Ringer's (Pitocin In Lr 10 Units/1,000 Ml) 10 unit in 1,000 mls @ 500 mls/hr IV .CONTINUOUS DAE Last Admin: 01/21/21 05:15 Dose: 500 mls/hr Documented by: Magnesium Sulfate (Magnesium Sulfate In Water 40 Gm/1000 Ml) Confirm Administered Dose 40 gm in 1,000 mls @ as directed .ROUTE .STK-MED ONE Stop: 01/20/21 11:59 Last Admin: 01/20/21 12:42 Dose: Not Given Documented by: Lactated Ringer's (Ringers, Lactated) Confirm Administered Dose 2,000 mls @ as directed .ROUTE .STK-MED ONE Stop: 01/21/21 06:11 Ketorolac Tromethamine (Ketorolac 30 Mg/Ml Sdv) Confirm Administered Dose 30 mg .ROUTE .STK-MED ONE Stop: 01/21/21 06:11 Miscellaneous Medication (Phenylephrine Hcl In 0.9% Nacl 1 Mg/10 Ml Syringe) 0 mg IVPUSH ONETIME ONE Stop: 01/20/21 13:13 Last Admin: 01/20/21 19:49 Dose: 1 mg Documented by: Miscellaneous Medication (Phenylephrine Hcl In 0.9% Nacl 1 Mg/10 Ml Syringe) C onfirm Administered Dose 1 mg .ROUTE .STK-MED ONE Stop: 01/21/21 06:11 Morphine Sulfate (Morphine Pf 10 Mg/10 Ml Sdv) Confirm Administered Dose 10 mg .ROUTE .STK-MED ONE Stop: 01/21/21 06:12 Nalbuphine HCl (Nalbuphine 10 Mg/1 Ml Vial) 10 mg IVPUSH Q2H PRN PRN Reason: Pain Ondansetron HCl (Ondansetron 4 Mg/2 Ml Sdv) 4 mg IVPUSH Q4H PRN PRN Reason: Nausea/Vomiting Last Admin: 01/21/21 04:08 Dose: 4 mg Documented by: Ondansetron HCl (Ondansetron 4 Mg/2 Ml Sdv) 4 mg IVPUSH ONETIME PRN PRN Reason: Nausea/Vomiting Ondansetron HCl (Ondansetron 4 Mg/2 Ml Sdv) Confirm Administered Dose 4 mg .ROUTE .STK-MED ONE Stop: 01/21/21 06:11 Oxytocin (Oxytocin 10 Units/1 Ml Sdv) Confirm Administered Dose 10 unit .ROUTE .STK-MED ONE Stop: 01/21/21 06:11 Sodium Chloride (Sodium Chloride 0.9% 10 Ml Syringe) 10 ml FLUSH ASDIRECTED PRN PRN Reason: Keep Vein Open - Infant Interaction Infant Disposition, : in Room with Family Infant Interaction: Holding Infant Feeding: Attempted ; Nursed Fair/Poor Support Person: - Recovery Exam Fundal Tone: Firm Fundal Level: At Umbilicus Fundal Placement: Midline Lochia Amount: Small Lochia Color: [place]ra/Red Perineum Description: Other (see below) Other Perinuem Description: 1st degree laceration with repair Episiotomy/Laceration: Approximated Bladder Status: Voiding Urinary Elimination: Voided - Exam General: Alert, Oriented, Cooperative GI/Abdominal Exam: Soft, Non-Tender Extremities: Normal Inspection Neurological: Other (+3 patellar reflexes, +3 biceps reflexes ) - Problem List & Annotations (1) 36 weeks gestation of SNOMED Code(s): 90914953 Code(s): Z3A.36 - 36 WEEKS GESTATION OF Status: Acute Current Visit: Yes (2) Severe preeclampsia SNOMED Code(s): 52921760 Code(s): O14.10 - SEVERE PRE-ECLAMPSIA, UNSPECIFIED TRIMESTER Status: Acute Current Visit: Yes Qualifiers: Trimester: third trimester Qualified Code(s): O14.13 - Severe pre- eclampsia, third trimester (3) Vaginal delivery SNOMED Code(s): 077306136 Code(s): O80 - ENCOUNTER FOR FULL-TERM UNCOMPLICATED DELIVERY Status: Acute Current Visit: Yes - Problem List Review Problem List Initiated/Reviewed/Updated: Yes - My Orders Last 24 Hours: My Active Orders 01/21/21 Breakfast Regular Diet [DIET] 01/21/21 07:36 Acetaminophen [TylenoL] 650 mg PO Q4H PRN Benzocaine/Menthol [Dermoplast Pain Relief [place]] See Dose Instructions TOP ASDIRECTED PRN Docusate Sodium [Colace] 100 mg PO BID PRN Ibuprofen [Motrin] 600 mg PO Q6H PRN witch Ruben [Tucks] 1 pad TOP ASDIRECTED PRN Heat Therapy [OM.PC] PRN 01/21/21 07:36 Activity as Tolerated [RC] PER UNIT ROUTINE Vital Signs [RC] Q2HR Assess Lochia [WOMSER] Per Unit Routine Assess Uterine Involution [WOMSER] Per Unit Routine Breast Pump [WOMSER] Per Unit Routine Ice Therapy [OM.PC] Per Unit Routine Perineal Care [OM.PC] Per Unit Routine Peripheral IV Discontinue [OM.PC] Routine Sitz Bath [OM.PC] Per Unit Routine 01/21/21 16:15 Sertraline [Zoloft] 50 mg PO DAILY 01/21/21 18:47 Patient Status [ADT] Routine 01/22/21 07:36 Heat Therapy [OM.PC] PRN - Assessment Assessment:: PPD#1 - Plan Plan:: * Routine cares * Breast feeding * S/p 24 hours of magnesium. Continue to monitor BP's closely * Discharge tomorrow
[2021-01-22] MEDS: Witch Hazel Medicated Pads 40/Jar TOP PRN ×2 (08:07→17:30)
[2021-01-22] MEDS: Docusate Sodium 100 MG Cap PO PRN (08:07)
[2021-01-22] MEDS: Acetaminophen 325 MG Tab PO PRN (08:15)
[2021-01-23] MEDS: Ibuprofen 600 MG Tab PO PRN ×2 (00:03→06:19)
--- NOTE | 2021-01-23 07:26 | PCM.DCSUM1 ---
Discharge Summary - Discharge Data Discharge Date: 01/23/21 Discharge Disposition: Home, Self-Care 01 Condition: Good - Referral to Home Health Primary Care Physician: Anisha Velázquez MD - Discharge Diagnosis/Problem(s) (1) 36 weeks gestation of SNOMED Code(s): 64414826 ICD Code: Z3A.36 - 36 WEEKS GESTATION OF Status: Acute (2) Severe preeclampsia SNOMED Code(s): 03853165 ICD Code: O14.10 - SEVERE PRE-ECLAMPSIA, UNSPECIFIED TRIMESTER Status: Acute Qualifiers: Trimester: third trimester Qualified Code(s): O14.13 - Severe pre- eclampsia, third trimester (3) Vaginal delivery SNOMED Code(s): 035532621 ICD Code: O80 - ENCOUNTER FOR FULL-TERM UNCOMPLICATED DELIVERY Status: Acute - Patient Summary/Data Complications: None Consults: None Recommended Follow-up Testing/Procedures: Follow up in 2 days for BP check and 3 weeks for check Hospital Course: 30 y/o at 36 2/7 wks presented for planned assessment for BP disorder of . Noted to have first BP severe range and feeling more symptomatic. Remaining BP's upper limit of mild range. Also noted to be hyperreflexive. Diagnosed with severe preeclampsia and kept for IOL. Done with pitocin and AROM. Was also started on magnesium with IOL. She progressed well and underwent an uncomplicated . See delivery note. Was kept on magnesium for 24 hours post delivery. Did not require antihypertensive medications during IOL or stay. Was discharged home on PPD#2 with mild range BP's noted - Patient Instructions Diet: Regular Diet as Tolerated Activity: As Tolerated Activity, Other: Pelvic rest for 6 weeks Driving: May Drive Today Showering/Bathing: May Shower Showering/Bathing, Other: May bathe Notify Provider of: Fever, Increased Pain, Swelling and Redness, Drainage, Nausea and/or Vomiting - Discharge Plan *PRESCRIPTION DRUG MONITORING PROGRAM REVIEWED*: No *COPY OF PRESCRIPTION DRUG MONITORING REPORT IN PATIENT VANNA: No Home Medications: Home Meds L.acidoph,Paracasei, B.lactis [Probiotic] 1 each PO DAILY 01/13/21 [History] Vits #93/Iron Fum/FA [ Formula Tablet] 1 tab PO DAILY 01/13/21 [History] Sertraline [Zoloft] 50 mg PO DAILY 01/13/21 [History] Acetaminophen [Tylenol Extra Strength] 1,000 mg PO ASDIRECTED PRN 01/20/21 [History] Ibuprofen [Motrin] 600 mg PO Q6H PRN tablet 01/22/21 [Rx] Patient Handouts: Preeclampsia and Eclampsia, Hypertension During , [id number], Hypertension, Care After Vaginal Delivery Referrals: Anisha Velázquez MD [Primary Care Provider] - (BP check this week to coordinate with visist check in 3 weeks ) - Discharge Summary/Plan Comment DC Time >30 min.: No - Patient Data Vitals - Most Recent: Last Vital Signs Temp 36.5 C 01/23/21 03:41 Pulse 71 01/23/21 03:41 Resp 14 01/23/21 03:41 BP 148/89 H 01/23/21 03:41 Pulse Ox 99 01/23/21 03:41 Weight - Most Recent: 90.628 kg I&O - Last 24 hours: Intake & Output 01/22/21 01/23/21 01/23/21 22:59 06:59 14:59 Intake Total 600 1700 Output Total 950 1500 Balance -350 200 Med Orders - Current: Current Medications Acetaminophen (Acetaminophen 325 Mg Tab) 650 mg PO Q4H PRN PRN Reason: mild pain or fever Last Admin: 01/22/21 08:15 Dose: 650 mg Documented by: Benzocaine/Menthol (Benzocaine/Menthol 20%-0.5% [place] 56 Gm Canister) 0 gm TOP ASDIRECTED PRN PRN Reason: Perineal Comfort Measure Last Admin: 01/21/21 09:13 Dose: 1 applic Documented by: Calcium Gluconate (Calcium Gluconate 10% 1 Gm/10 Ml Sdv) 1 gm IV ASDIRECTED PRN PRN Reason: respiratory distress Docusate Sodium (Docusate Sodium 100 Mg Cap) 100 mg PO BID PRN PRN Reason: Constipation Last Admin: 01/22/21 08:07 Dose: 100 mg Documented by: Lactated Ringer's (Ringers, Lactated) 1,000 mls @ 75 mls/hr IV ASDIRECTED DAE Last Admin: 01/21/21 16:49 Dose: 75 mls/hr Documented by: Magnesium Sulfate (Magnesium Sulfate In Water 40 Gm/1000 Ml) 40 gm in 1,000 mls @ 50 mls/hr IV ASDIRECTED DAE Last Admin: 01/21/21 11:39 Dose: 50 mls/hr Documented by: Ibuprofen (Ibuprofen 600 Mg Tab) 600 mg PO Q6H PRN PRN Reason: Mild pain or fever Last Admin: 01/23/21 06:19 Dose: 600 mg Documented by: Sertraline HCl (Sertraline 50 Mg Tab) 50 mg PO DAILY [facility] Last Admin: 01/21/21 19:05 Dose: Not Given Documented by: Michele Matta (Michele Matta Medicated Pads 40/Jar) 1 pad TOP ASDIRECTED PRN PRN Reason: Perineal Comfort Measure Last Admin: 01/22/21 17:30 Dose: 1 jar Documented by: Discontinued Medications Acetaminophen (Acetaminophen 325 Mg Tab) 650 mg PO Q4H PRN PRN Reason: Pain (Mild 1-3) and fever Last Admin: 01/20/21 17:10 Dose: 650 mg Documented by: Betamethasone Acet/Betameth SodPhos (Betamethasone Acetate/Betamethasone Sod Phosphate 30 Mg/5 Ml Mdv) 12 mg IM ONETIME ONE Stop: 01/20/21 11:38 Last Admin: 01/20/21 12:09 Dose: 12 mg Documented by: Bupivacaine HCl (Bupivacaine 0.25% 10 Ml Sdv) 10 ml .ROUTE .STK-MED ONE Stop: 01/21/21 00:01 Cefazolin Sodium (Cefazolin 1 Gm Vial) Confirm Administered Dose 2 gm .ROUTE .STK-MED ONE Stop: 01/21/21 06:11 Ephedrine Sulfate (Ephedrine 50 Mg/Ml Sdv) 5 mg IVPUSH ASDIRECTED PRN PRN Reason: Hypotension Last Admin: 01/20/21 19:45 Dose: 5 mg Documented by: Ephedrine Sulfate (Ephedrine 50 Mg/Ml Sdv) 50 mg .ROUTE .STK-MED ONE Stop: 01/21/21 00:01 Fentanyl (Fentanyl 100 Mcg/2 Ml Sdv) 100 mcg EPIDUR Q3H PRN PRN Reason: Pain Last Admin: 01/20/21 19:08 Dose: 100 mcg Documented by: Fentanyl (Fentanyl 100 Mcg/2 Ml Sdv) Confirm Administered Dose 100 mcg .ROUTE .STK-MED ONE Stop: 01/21/21 06:13 Fentanyl/Bupivacaine HCl (Bupivacaine/Fentanyl/Ns 100 Ml Bag) 100 ml EPIDUR ASDIRECTED DAE Last Admin: 01/21/21 03:11 Dose: 100 ml Documented by: Magnesium Sulfate 4 gm/ Premix 50 mls @ 200 mls/hr IV ONETIME ONE Stop: 01/20/21 11:45 Last Admin: 01/20/21 12:09 Dose: 200 mls/hr Documented by: Magnesium Sulfate 2 gm/ Premix 50 mls @ 300 mls/hr IV ONETIME ONE Stop: 01/20/21 11:40 Last Admin: 01/20/21 12:25 Dose: 300 mls/hr Documented by: Oxytocin/Lactated Ringer's (Pitocin In Lr 10 Units/1,000 Ml) 10 unit in 1,000 mls @ 12 mls/hr IV TITRATE DAE; Protocol Last Titration: 01/21/21 01:00 Dose: 14 munits/min, 84 mls/hr Documented by: Oxytocin/Lactated Ringer's (Pitocin In Lr 10 Units/1,000 Ml) 10 unit in 1,000 mls @ 500 mls/hr IV .CONTINUOUS DAE Last Admin: 01/21/21 05:15 Dose: 500 mls/hr Documented by: Magnesium Sulfate (Magnesium Sulfate In Water 40 Gm/1000 Ml) Confirm Administered Dose 40 gm in 1,000 mls @ as directed .ROUTE .STK-MED ONE Stop: 01/20/21 11:59 Last Admin: 01/20/21 12:42 Dose: Not Given Documented by: Lactated Ringer's (Ringers, Lactated) Confirm Administered Dose 2,000 mls @ as directed .ROUTE .STK-MED ONE Stop: 01/21/21 06:11 Ketorolac Tromethamine (Ketorolac 30 Mg/Ml Sdv) Confirm Administered Dose 30 mg .ROUTE .STK-MED ONE Stop: 01/21/21 06:11 Miscellaneous Medication (Phenylephrine Hcl In 0.9% Nacl 1 Mg/10 Ml Syringe) 0 mg IVPUSH ONETIME ONE Stop: 01/20/21 13:13 Last Admin: 01/20/21 19:49 Dose: 1 mg Documented by: Miscellaneous Medication (Phenylephrine Hcl In 0.9% Nacl 1 Mg/10 Ml Syringe) Confirm Administered Dose 1 mg .ROUTE .STK-MED ONE Stop: 01/21/21 06:11 Morphine Sulfate (Morphine Pf 10 Mg/10 Ml Sdv) Confirm Administered Dose 10 mg .ROUTE .STK-MED ONE Stop: 01/21/21 06:12 Nalbuphine HCl (Nalbuphine 10 Mg/1 Ml Vial) 10 mg IVPUSH Q2H PRN PRN Reason: Pain Ondansetron HCl (Ondansetron 4 Mg/2 Ml Sdv) 4 mg IVPUSH Q4H PRN PRN Reason: Nausea/Vomiting Last Admin: 01/21/21 04:08 Dose: 4 mg Documented by: Ondansetron HCl (Ondansetron 4 Mg/2 Ml Sdv) 4 mg IVPUSH ONETIME PRN PRN Reason: Nausea/Vomiting Ondansetron HCl (Ondansetron 4 Mg/2 Ml Sdv) Confirm Administered Dose 4 mg .ROUTE .STK-MED ONE Stop: 01/21/21 06:11 Oxytocin (Oxytocin 10 Units/1 Ml Sdv) Confirm Administered Dose 10 unit .ROUTE .STK-MED ONE Stop: 01/21/21 06:11 Phenylephrine HCl (Phenylephrine/Normal Saline 100 Mcg/Ml 10 Ml Syringe) 1 mg .ROUTE .STK-MED ONE Stop: 01/21/21 00:01 Sodium Chloride (Sodium Chloride 0.9% 10 Ml Syringe) 10 ml FLUSH ASDIRECTED PRN PRN Reason: Keep Vein Open
[2021-01-23] MEDS: Sertraline 50 MG Tab PO SCH (08:56)
== END 2021-01-23 12:20 | disposition home or self-care (01) | DRG 560 ==
LOC: JD.OBCHECK 10:44 → JD.OB 11:31 → OBSVTOIN 01-21 05:01 → JD.MS 01-21 07:18 → JD.OB 01-21 12:52
PROVIDERS: ADMIT Obstetrics & Gynecology; ATTEND Obstetrics & Gynecology
PROC: 10E0XZZ Delivery of Products of Conception, External Approach (ICD-10-PCS; principal; 2021-01-21)
PROC: 0KQM0ZZ Repair Perineum Muscle, Open Approach (ICD-10-PCS; 2021-01-21)
PROC: 3E0R3BZ Introduction of Anesthetic Agent into Spinal Canal, Percutaneous Approach (ICD-10-PCS; 2021-01-21)
PROC: 00HU33Z Insertion of Infusion Device into Spinal Canal, Percutaneous Approach (ICD-10-PCS; 2021-01-21)
PROC: 10907ZC Drainage of Amniotic Fluid, Therapeutic from Products of Conception, Via Natural or Artificial Opening (ICD-10-PCS; 2021-01-21)
DX: O14.14 Severe pre-eclampsia complicating childbirth (principal); Z3A.38 38 weeks gestation of pregnancy; Z37.0 Single live birth; O70.1 Second degree perineal laceration during delivery; Z20.822 Contact with and (suspected) exposure to COVID-19
CPT/HCPCS: 01967; 36415; 51702; 59025; 59409; 82565; 82570; 84156; 84450; 84460; 85027; 86592; 86850; 86900; 86901; A9270-GY; J0690; J0702; J1885; J2270; J2370; J2405; J2590; J3010; J3475; J3490; J7120; U0002

== ENCOUNTER 2024-06-02 11:57 | Emergency (ER) | payer BC ==
[2024-06-02] MEDS: Sodium Chloride 0.9% 1,000 ML IV STA (13:12)
[2024-06-02] MEDS: Ondansetron 4 MG/2 ML SDV IVPUSH ONE (13:12)
[2024-06-02] MEDS: HYDROmorphone 0.5 MG/0.5 ML Syringe IVPUSH ONE (13:12)
[2024-06-02] MEDS: Sodium Chloride 0.9% 10 ML Syringe FLUSH PRN (13:16)
[2024-06-02 13:22] LABS: BASOPHILS PERCENT AUTO 0.3 % (0.0-1.0); EOSINOPHILS ABSOLUTE AUTO 0.1 K/mm3 (0.0-0.4); EOSINOPHILS PERCENT AUTO 0.7 % (0.0-6.0); HEMATOCRIT 44.3 % (37.0-47.0); HEMOGLOBIN 15.3 gm/dl (12.0-16.0); IMMATURE GRAN ABSOLUTE AUTO 0.05 K/mm3 (0.00-0.05); IMMATURE GRAN PERCENT AUTO 0.4 % (0.0-0.4); LYMPHOCYTES ABSOLUTE AUTO 0.5 K/mm3 (1.0-4.8); LYMPHOCYTES PERCENT AUTO 3.7 % (24.0-44.0); MEAN CORPUSCULAR HEMOGLOBIN 29.9 pg (28.0-32.0); MEAN CORPUSCULAR HGB CONC 34.5 g/dl (32.0-36.0); MEAN CORPUSCULAR VOLUME 86.5 fl (83.0-99.0); MEAN PLATELET VOLUME 10.5 fl (9.4-12.3); MONOCYTES ABSOLUTE AUTO 0.6 K/mm3 (0.0-0.8); MONOCYTES PERCENT AUTO 4.3 % (0.0-8.0); NEUTROPHILS ABSOLUTE AUTO 11.9 K/mm3 (1.8-7.7); NEUTROPHILS PERCENT AUTO 90.6 % (41.0-71.0); PLATELET COUNT,PLT 217 K/mm3 (150-400); RED BLOOD CELL COUNT 5.12 M/mm3 (4.10-5.30); WHITE BLOOD CELL COUNT,WBC 13.18 K/mm3 (3.9-11.3)
[2024-06-02 14:08] LABS: A/G RATIO 1.3 (1-2); ALBUMIN 4.4 g/dl (3.4-5.0); ANION GAP 17.5 (5-15); BILIRUBIN TOTAL 2.2 mg/dL (0.2-1.0); BUN/CREATININE RATIO 16.3 (14-18); CALCIUM 9.6 mg/dL (8.5-10.1); CREATININE 0.8 mg/dL (0.55-1.02); EST CRCL DRUG DOSING (CG) 91.01 mL/min; POTASSIUM,K 3.5 mEq/L (3.5-5.1); PROTEIN TOTAL,TP 7.8 g/dl (6.4-8.2)
[2024-06-02 14:11] LABS: CORONAVIRUS COVID-19 NAA NEGATIVE (NEGATIVE); INFLUENZA A NAA NEGATIVE (NEGATIVE); RESPIRATORY SYNCYTIAL VIR NAA NEGATIVE (NEGATIVE)
[2024-06-02] MEDS: Iopamidol 612 MG/ML 100 ML Bottle IVPUSH ONE (14:51)
[2024-06-02] MEDS ORDERED: Sodium Chloride 0.9% 10 ML Syringe FLUSH ONE (15:00)
== END 2024-06-02 16:33 | disposition home or self-care (01) ==
LOC: JD.ED 11:57
DX: A08.4 Viral intestinal infection, unspecified (principal); Z86.16 Personal history of COVID-19; Z79.899 Other long term (current) drug therapy; Z91.018 Allergy to other foods; Z91.040 Latex allergy status; Z91.048 Other nonmedicinal substance allergy status
CPT/HCPCS: 0241U; 36415; 71045; 74177; 80053; 83605; 83690; 85025; 87651; 96361; 96374; 96375; 99285; J1170; J2405; J3490; J7030; Q9967; 99283

== ENCOUNTER 2024-08-17 06:15 | Day surgery (SDC) | payer BC ==
[~2024-08-17 06:15] MED LIST: Sodium Chloride 0.9% 10 ML Syringe FLUSH PRN
[2024-08-17] MEDS: Lactated Ringers 1,000 ML IV SCH (06:15)
[2024-08-17 06:33] LABS: BASOPHILS ABSOLUTE AUTO 0.1 K/mm3 (0.0-0.2); BASOPHILS PERCENT AUTO 0.8 % (0.0-1.0); EOSINOPHILS ABSOLUTE AUTO 0.1 K/mm3 (0.0-0.4); EOSINOPHILS PERCENT AUTO 1.9 % (0.0-6.0); HEMOGLOBIN 14.2 gm/dl (12.0-16.0); IMMATURE GRAN ABSOLUTE AUTO 0.02 K/mm3 (0.00-0.05); IMMATURE GRAN PERCENT AUTO 0.3 % (0.0-0.4); LYMPHOCYTES ABSOLUTE AUTO 1.8 K/mm3 (1.0-4.8); LYMPHOCYTES PERCENT AUTO 29.3 % (24.0-44.0); MEAN CORPUSCULAR HEMOGLOBIN 29.7 pg (28.0-32.0); MEAN CORPUSCULAR HGB CONC 34.6 g/dl (32.0-36.0); MEAN CORPUSCULAR VOLUME 85.8 fl (83.0-99.0); MEAN PLATELET VOLUME 10.3 fl (9.4-12.3); MONOCYTES ABSOLUTE AUTO 0.4 K/mm3 (0.0-0.8); MONOCYTES PERCENT AUTO 6.4 % (0.0-8.0); NEUTROPHILS ABSOLUTE AUTO 3.8 K/mm3 (1.8-7.7); NEUTROPHILS PERCENT AUTO 61.3 % (41.0-71.0); PLATELET COUNT,PLT 249 K/mm3 (150-400); RED BLOOD CELL COUNT 4.78 M/mm3 (4.10-5.30); WHITE BLOOD CELL COUNT,WBC 6.27 K/mm3 (3.9-11.3)
[2024-08-17 06:57] LABS: ANION GAP 13.6 (5-15); BUN/CREATININE RATIO 16.3 (14-18); CALCIUM 8.8 mg/dL (8.5-10.1); CREATININE 0.8 mg/dL (0.55-1.02); EST CRCL DRUG DOSING (CG) 91.01 mL/min; POTASSIUM,K 3.6 mEq/L (3.5-5.1)
[2024-08-17] MEDS ORDERED: Lidocaine 1% 5 ML VIAL ONE (07:08)
[2024-08-17] MEDS ORDERED: Propofol 200 MG/20 ML SDV ONE (07:08)
[2024-08-17] MEDS ORDERED: Ondansetron 4 MG/2 ML SDV ONE (07:08)
[2024-08-17] MEDS ORDERED: Midazolam 1 MG/ML 2 ML SDV ONE (07:08)
[2024-08-17] MEDS ORDERED: Rocuronium 50 MG/5 ML Vial ONE (07:08)
[2024-08-17] MEDS ORDERED: fentaNYL 250 MCG/5 ML SDV ONE (07:08)
[2024-08-17] MEDS ORDERED: HYDROmorphone 0.5 MG/0.5 ML Syringe IVPUSH PRN (07:27)
[2024-08-17] MEDS ORDERED: Ondansetron 4 MG/2 ML SDV IVPUSH PRN (07:27)
[2024-08-17] MEDS ORDERED: ceFAZolin 2 GM Vial ONE (07:27)
[2024-08-17] MEDS ORDERED: dexmedeTOMIDine HCl 200 MCG/2 ML SDV ONE (07:28)
[2024-08-17] MEDS ORDERED: Dexamethasone 4 MG/ML 5 ML MDV ONE (07:42)
[2024-08-17] MEDS ORDERED: Ketamine 200 MG/20 ML MDV ONE (07:42)
[2024-08-17] MEDS: Bupivacaine 0.5% 30 ML SDV ONE (07:57)
[2024-08-17] MEDS ORDERED: Lactated Ringers 1,000 ML ONE ×2 (07:58→08:55)
[2024-08-17] MEDS ORDERED: HYDROmorphone 0.5 MG/0.5 ML Syringe ONE (08:18)
[2024-08-17] MEDS: EPINEPHrine 1 MG/ML SDV ONE (08:19)
[2024-08-17] MEDS: Bupivacaine 0.25% 10 ML SDV ONE (08:19)
[2024-08-17] MEDS ORDERED: ePHEDrine 50 MG/ML SDV ONE (08:35)
[2024-08-17] MEDS ORDERED: Ketorolac 30 MG/ML SDV ONE (08:53)
[2024-08-17] MEDS ORDERED: Sugammadex Sodium 200 MG/2 ML VIAL IV ONE (08:53)
[2024-08-17] MEDS ORDERED: Sodium Chloride 0.9% 10 ML Syringe FLUSH SCH (09:00)
[2024-08-17] MEDS: fentaNYL 100 MCG/2 ML SDV IVPUSH PRN (09:28)
[2024-08-17] MEDS: Acetaminophen/oxyCODONE 325-5 MG Tab PO PRN (10:39)
== END 2024-08-17 13:55 | disposition home or self-care (01) ==
LOC: JD.SDS 06:15
PROVIDERS: ATTEND Obstetrics & Gynecology
DX: N84.0 Polyp of corpus uteri (principal); N83.8 Other noninflammatory disorders of ovary, fallopian tube and broad ligament; N93.9 Abnormal uterine and vaginal bleeding, unspecified; F41.9 Anxiety disorder, unspecified; J45.998 Other asthma; F17.200 Nicotine dependence, unspecified, uncomplicated; Z79.899 Other long term (current) drug therapy; Z91.040 Latex allergy status; Z91.018 Allergy to other foods
CPT/HCPCS: 36415; 58550; 80048; 85025; 86850; 86900; 86901; A9270; J0171; J0665; J0690; J1100; J1171; J1885; J2250; J2405; J2704; J3010; J3490; J7120; 00944